=== PATIENT | female | born 1975 | race Caucasian/White ===

== ENCOUNTER → 2021-03-02 | Outpatient (CLI) | payer OTHER | END | disposition home or self-care (01) | LOC: SJCVCIMAG 14:34 | PROVIDERS: ATTEND Internal Medicine | DX: I34.0 Nonrheumatic mitral (valve) insufficiency (principal); I34.1 Nonrheumatic mitral (valve) prolapse; Z79.899 Other long term (current) drug therapy ==

== ENCOUNTER → 2021-03-05 | Outpatient (CLI) | payer OTHER ==
[~2021-03-05] VITALS: Ht 165.1 cm; Wt 75.3 kg
[2021-03-05 10:41] VITALS: BP 116/50
[2021-03-05 11:41] LABS: ABSOLUTE NEUTROPHILS 3.9 thou/uL (1.4-8.2); BASOPHILS 0.3 % (0.0-2.0); EOSINOPHILS 0.7 % (0.0-3.0); HEMATOCRIT 35.2 % (37.0-47.0); HEMOGLOBIN 11.8 gm/dL (12.0-15.0); LYMPHOCYTES 22.6 % (24.0-44.0); MCH 30.6 pg (26.0-34.0); MCHC 33.5 g/dL (28.0-37.0); MCV 91.4 fL (80.0-100.0); MONOCYTES 5.6 % (1.0-8.0); PLATELET COUNT 192 thou/uL (150-400); POLYS 70.8 % (36.0-66.0); RBC 3.85 mil/uL (4.20-5.00); WBC 5.5 thou/uL (4.0-11.0)
[2021-03-05 11:50] LABS: CALCIUM 8.3 mg/dL (8.5-10.1); CREATININE 0.8 mg/dL (0.6-1.0); POTASSIUM 4.3 mmol/L (3.5-5.1)
--- NOTE | 2021-05-05 09:49 | CATHLAB ---
[facility] [address] [place] [address] INVASIVE PROCEDURE REPORT Name: MEY ROJAS Room #: REG MANDI Davis#: [id number] Admission: 03/05/21 Attend Phys: Baltazar Grant Discharge: Date of : 73 Report #: [id number] THIS REPORT FOR: cc: Luis Angel Delgado Jr., MD, Jr., Samuel D. MD Lammoglia, Francisco J. MD ~ APPROVED REPORT Study performed: 03/05/2021 13:54:40 Patient Status: Out-Patient Room #: Event Personnel: Baltazar Grant Implant 911 Dispatcher, darrick dash R.N., RN, Obinna Cho, [facility] Monitor, Joanna Kebede(R) Scrub Exam: ICD generator change Indications: End of life in individual with prior history of ventricular tachyarrhythmias The patient is a 45 year-old female with a history of Ventricular tachyarrhythmias. Patient Info BUN: 14 Creatine: 0.8 Conscious Sedation Start time: 14:44 End Time: 16:00 Versed 3.0 mg Demerol-25mg Implanted Devices: [employer]: Generator Model: [id number] PRIMO MRI VR SureScan; Serial #: [id number] Explanted Devices: [employer]: Explant Model: E102; Explant Serial #: [id number] Procedure The patient underwent informed consent. We discussed the details of the procedure including the risks, which include, but not limited to bleeding, infection, vascular damage, cardiac perforation, and pneumothorax. She understood these risks and was willing to proceed. As such, she was brought to the EP/Cardiac Catheterization laboratory in a fasting and sedated state and prepped and draped in a The patient underwent conscious sedation, with no related complications. [facility] [address] [place] [address] INVASIVE PROCEDURE REPORT Name: MEY ROJAS Room #: REG [facility]#: [id number] Admission: 03/05/21 Attend Phys: Balatzar Castellon Discharge: Date of : 73 Report #: [id number] The patient was brought to the EP/Cardiac Catheterization laboratory and the left chest and shoulder were prepped and draped in a sterile manner. During this case, Fluoroscopy and no contrast were used for imaging. IV conscious sedation was used throughout procedure with appropriate monitoring and was performed in the presence of a registered nurse who was an independent trained observer other than the physician performing the procedure. The left subclavian region was infiltrated with 2% Lidocaine subcutaneous anesthesia. A transverse incision was made in the left upper chest cavity. Electrode Parameters R Wave: 7.4 mV Ventricular Threshold: 1.0 V @ 0.6 ms Ventricular Resistance: 399 Ohms Generator Change The generator change was then secured using sutures. The subcutaneous pocket was irrigated with ancef antibiotic solution.The lead was attached to the appropriate receptacle on the new pulse generator and setscrews firmly tightened to insure adequate contact and stability. The lead and pulse generator were placed into the subcutaneous pocket. Sharp and sponge counts were confirmed to be correct. At this time the pocket was closed subcutaneously with a 2.0 nonabsorbable in a running locking stitch and the skin was closed with a 3.0 Vicryl in a subcuticular stitch. The operative site was dressed in sterile fashion with Steri-Strips 4 x 4 OpSite and the patient was transferred to the floor in stable condition. Complications The patient tolerated the procedure well and there were no complications associated with the procedure. Findings Explanted device was taken by the company containers sales representative for appropriate disposal Conclusion 1. Successful generator change of a single lead ICD [address] [address] INVASIVE PROCEDURE REPORT Name: MEY ROJAS Room #: REG COUNTS [id number] Admission: 03/05/21 Attend Phys: Baltazar Castellon Discharge: Date of : 73 Report #: [id number] Recommendations 1. Routine post generator change protocol <ELECTRONICALLY SIGNED> By: Baltazar Grant MD 05/05/21 0948 [id number] [id number] Baltazar Grant MD /INF
== END | disposition home or self-care (01) ==
LOC: CATH 08:17
PROVIDERS: ATTEND Internal Medicine
DX: Z45.02 Encounter for adjustment and management of automatic implantable cardiac defibrillator (principal); I47.2 Ventricular tachycardia; Z98.890 Other specified postprocedural states; Z79.899 Other long term (current) drug therapy; Z82.49 Family history of ischemic heart disease and other diseases of the circulatory system